=== PATIENT | male | born 1985 | race Caucasian/White ===

== ENCOUNTER 2017-10-31 21:14 | Emergency (ER) | payer OTHER ==
--- NOTE | 2017-10-31 21:18 | PDOC ---
History of Present Illness - History of Present Illness Initial Comments: 10/31/17 21:45 The patient is a 32 year old male, with a significant past medical history of herniated discs (4), who presents to the emergency department with sore throat, cough and right ear pain for 1.5 days. Patient states that 1.5 days ago he began experiencing throat pain and right ear pain. Hes been taking Tylenol for the pain. He took his temperature approximately 9 hours ago and it was 101.5 degrees. He is experiencing a non-productive cough, says his phlegm gets stuck in throat. He admits a sick contact - his co-worker. He denies recent rash or stiff neck. He denies any recent, chills, headache or dizziness. He denies any recent nausea, vomit, diarrhea or constipation. He denies any recent chest pain or shortness of breath. He denies any recent dysuria, frequency, urgency or hematuria. Allergies: NKA Past surgical history: herniated disc surgery, appendectomy (1996). Social History:Former smoker (quit 6 months ago, rarely smoked) <Kenya Eddy - Last Filed: 10/31/17 21:45> <Alfreda Murrieta - Last Filed: 11/01/17 04:52> - General Chief Complaint: Pain, Acute Stated Complaint: SORE THROAT X 2 DAYS Time Seen by Provider: 10/31/17 21:17 Past History <Kenya Eddy - Last Filed: 10/31/17 21:45> - Past Medical History Anemia: No Asthma: No Cancer: No Cardiac Disorders: No CVA: No COPD: No CHF: No Dementia: No Diabetes: No GI Disorders: No Disorders: No HTN: No Hypercholesterolemia: No Liver Disease: No Seizures: No Thyroid Disease: No - Surgical History Abdominal Surgery: No Appendectomy: Yes (1996) Cardiac Surgery: No Cholecystectomy: No Lung Surgery: No Neurologic Surgery: No Orthopedic Surgery: No - Immunization History Td Vaccination: Yes Immunization Up to Date: Yes - Suicide/Smoking/Psychosocial Hx Smoking Status: No Smoking History: Never smoked Number of Cigarettes Smoked Daily: 0 Hx Alcohol Use: Yes (weekends) Drug/Substance Use Hx: No Substance Use Type: None <Alfreda Murrieta - Last Filed: 11/01/17 04:52> - Past Medical History Allergies/Adverse Reactions: Allergies Allergy/AdvReac Type Severity Reaction Status Date / Time No Known Allergies Allergy Verified 10/31/17 21:15 Home Medications: Ambulatory Orders Neomycin/Polymyxn/Hc [Cortisporin Otic Suspenstion -] 4 drop AD Q4HWA #1 bottle 10/31/17 Review of Systems - Review of Systems Comments:: 10/31/17 21:46 GENERAL/CONSTITUTIONAL: +fever. No chills. No weakness. HEAD, EYES, EARS, NOSE AND THROAT: No change in vision. + right ear pain, no discharge. +sore throat. CARDIOVASCULAR: No chest pain or shortness of breath. RESPIRATORY: +non-productive cough, no wheezing, or hemoptysis. GASTROINTESTINAL: No nausea, vomiting, diarrhea or constipation. GENITOURINARY: No dysuria, frequency, or change in urination. MUSCULOSKELETAL: No joint or muscle swelling or pain. No neck or back pain. SKIN: No rash NEUROLOGIC: No headache, vertigo, loss of consciousness, or change in strength/ sensation. ENDOCRINE: No increased thirst. No abnormal weight change. HEMATOLOGIC/LYMPHATIC: No anemia, easy bleeding, or history of blood clots. ALLERGIC/IMMUNOLOGIC: No hives or skin allergy. <Kenya Eddy - Last Filed: 10/31/17 21:45> *Physical Exam - Vital Signs Last Vital Signs Temp Pulse Resp BP Pulse Ox 99.2 F 89 16 147/92 98 10/31/17 21:17 10/31/17 21:17 10/31/17 21:17 10/31/17 21:17 10/31/17 21:17 - Physical Exam Comments: 10/31/17 21:47 ADULT EXAM GENERAL: Awake, alert, and fully oriented, in no acute distress HEAD: No signs of trauma EYES: PERRLA, EOMI, sclera anicteric, conjunctiva clear ENT: Pain w/ mvmt of external portion of right ear. Moderately erythematous and edematous right canal. Tympanic membrane normal without bulging, erythema, or dullness. Left ear normal. Pharynx erythematous without edema or exudates. Hearing grossly normal, nares patent, Moist mucosa NECK: Normal ROM, supple, no lymphadenopathy, JVD, or masses LUNGS: Breath sounds equal, clear to auscultation bilaterally. No wheezes, and no crackles HEART: Regular rate and rhythm, normal S1 and S2, no murmurs, rubs or gallops ABDOMEN: Soft, nontender, normoactive bowel sounds. No guarding, no rebound. No masses EXTREMITIES: Normal range of motion, no edema. No clubbing or cyanosis. No cords, erythema, or tenderness NEUROLOGICAL: Cranial nerves II through XII grossly intact. Normal speech, normal gait SKIN: Warm, Dry, normal turgor, no rashes or lesions noted. <Kenya Eddy - Last Filed: 10/31/17 21:45> ED Treatment Course - ADDITIONAL ORDERS Additional order review: 10/31/17 21:15 Group A Strep Rapid Antigen - Final Throat NEGATIVE FOR THE ANTIGEN OF BETA HEMOLYTIC STREP GROUP A <Kenya Eddy - Last Filed: 10/31/17 21:45> Progress Note - Progress Note Progress Note: Documentation has been prepared under my direction and personally reviewed by me in its entirety. I attest that this documented accurately reflects all work, treatment, procedures and medical decision making performed by me. <Alfreda Murrieta - Last Filed: 11/01/17 04:52> Medical Decision Making - Medical Decision Making As noted above, this otherwise healthy 32-year-old man presents with sore throat and fever for the last few days. No exposure to known cases of strep throat or to school age children. He also has right ear pain . Exam as noted showed erythema of the pharynx without exudates. Also, there is erythema and edema of the right auditory canal. Quick strep is negative Throat culture is pending. Patient advised to use ibuprofen alternating with acetaminophen as needed for pain. He will be called if throat culture is positive for strep. Cortisporin drops will be prescribed for his right acute otitis externa. He should return if he has severe pain or high fever and follow-up with his general doctor within the next several days. He will also be given referral to ENT (Dr. Kang durham) for evaluation/treatment if his right ear pain persists <Alfreda Murrieta - Last Filed: 11/01/17 04:52> *DC/Admit/Observation/Transfer - Attestations Scribe Attestion: 10/31/17 21:49 Documentation prepared by Kenya Eddy, acting as medical lab technician for Alfreda Murrieta MD. <Kenya Eddy - Last Filed: 10/31/17 21:45> <Alfreda Murrieta - Last Filed: 11/01/17 04:52> Diagnosis at time of Disposition: Acute otitis externa of right ear Qualifiers: Otitis externa type: unspecified type Qualified Code(s): H60.501 - Unspecified acute noninfective otitis externa, right ear Acute pharyngitis Qualifiers: Pharyngitis/tonsillitis etiology: unspecified etiology Qualified Code(s): J02.9 - Acute pharyngitis, unspecified - Discharge Dispostion Disposition: HOME Condition at time of disposition: Stable - Prescriptions Prescriptions: Neomycin/Polymyxn/Hc [Cortisporin Otic Suspenstion -] 4 drop AD Q4HWA #1 bottle - Referrals Referrals: Vic Kapadia MD [Staff Physician] - - Patient Instructions Printed Discharge Instructions: DI for Pharyngitis/Tonsillopharyngitis -- Adult , DI for Otitis Externa Additional Instructions: Rest; drink plenty of fluids Tylenol/Motrin as needed for pain or fever Cortisporin eardrops: 4 drops in right ear every 4 hours while awake for the next week Return if you have persistent high fever/worsening throat pain/productive cough/ shortness of breath Follow-up with your general doctor within the next week If you have persistent ear pain, follow-up with Dr. Kang durham (ear/nose/throat doctors)
[2017-10-31 21:22] VITALS: BP 147/92; PULSE 89; TEMP 99.2; BMI 41.8
== END 2017-10-31 22:02 | disposition home or self-care (01) ==
LOC: FER 21:14
DX: H60.501 Unspecified acute noninfective otitis externa, right ear (principal); J02.9 Acute pharyngitis, unspecified
CPT/HCPCS: 87070; 87186; 87430; 99281-25

== ENCOUNTER 2017-12-08 00:46 | Emergency (ER) | payer OTHER ==
[2017-12-08 00:53] VITALS: BP 143/82; PULSE 86; TEMP 98.2; BMI 42.5
--- NOTE | 2017-12-08 01:22 | PDOC ---
History of Present Illness - General Chief Complaint: Injury Stated Complaint: RT WRIST PAIN Time Seen by Provider: 12/08/17 01:16 Past History - Past Medical History Allergies/Adverse Reactions: Allergies Allergy/AdvReac Type Severity Reaction Status Date / Time No Known Allergies Allergy Verified 10/31/17 21:15 Home Medications: Ambulatory Orders NK [No Known Home Medication] 12/08/17 Anemia: No Asthma: No Cancer: No Cardiac Disorders: No CVA: No COPD: No CHF: No DVT: No Dementia: No Diabetes: No GI Disorders: No Disorders: No HTN: No Hypercholesterolemia: No Liver Disease: No Seizures: No Thyroid Disease: No - Surgical History Abdominal Surgery: No Appendectomy: Yes (1996) Cardiac Surgery: No Cholecystectomy: No Lung Surgery: No Neurologic Surgery: No Orthopedic Surgery: No - Immunization History Td Vaccination: Yes Immunization Up to Date: Yes - Suicide/Smoking/Psychosocial Hx Smoking Status: No Smoking History: Former smoker Have you smoked in the past 12 months: Yes Number of Cigarettes Smoked Daily: 0 Information on smoking cessation initiated: Yes 'Breaking Loose' booklet given: 12/08/17 Hx Alcohol Use: Yes (s) Drug/Substance Use Hx: No Substance Use Type: None *Physical Exam - Vital Signs Last Vital Signs Temp Pulse Resp BP Pulse Ox 98.2 F 86 18 143/82 100 12/08/17 00:50 12/08/17 00:50 12/08/17 00:50 12/08/17 00:50 12/08/17 00:50 *DC/Admit/Observation/Transfer Diagnosis at time of Disposition: Right wrist sprain Qualifiers: Encounter type: initial encounter Qualified Code(s): S63.501A - Unspecified sprain of right wrist, initial encounter - Discharge Dispostion Disposition: HOME Condition at time of disposition: Stable - Referrals Referrals: Claire Christianson MD [Primary Care Provider] - Urbano Talamantes MD [Staff Physician] - Call tomorrow - Patient Instructions Printed Discharge Instructions: Wrist Sprain Additional Instructions: Wrist splint during the day until seen by orthopedist Ibuprofen/naproxen/acetaminophen as needed for pain No work until seen by orthopedist Return to ER if you have severe, persistent pain - Post Discharge Activity Forms/Work/School Notes: Back to Work
== END 2017-12-08 02:36 | disposition home or self-care (01) ==
LOC: FER 00:46
DX: S63.501A Unspecified sprain of right wrist, initial encounter (principal); X58.XXXA Exposure to other specified factors, initial encounter; Y93.89 Activity, other specified; Y92.9 Unspecified place or not applicable; Z87.891 Personal history of nicotine dependence
CPT/HCPCS: 73110-TC-RT-FY; 99282-25

== ENCOUNTER 2018-09-01 12:42 | Emergency (ER) | payer SELFPAY ==
[2018-09-01 13:02] VITALS: BP 143/93; PULSE 77; TEMP 98.3; BMI 42.4
[2018-09-01] MEDS ORDERED: IBUPROFEN 600 MG TABLET (FP) PO ONE ×2 (14:01)
--- NOTE | 2018-09-01 14:08 | PDOC ---
History of Present Illness - General Chief Complaint: Pain Stated Complaint: INJURY Time Seen by Provider: 09/01/18 13:26 History Source: Patient Exam Limitations: No Limitations - History of Present Illness Initial Comments: 09/01/18 14:02 33 y/o male presents to the ED with c/o of right hand pain after punching a wall earlier today. Pt states unable to make a fist secondary to swelling and pain Occurred: reports: just prior to arrival Severity: reports: mild Pain Location: reports: upper extremity Method of Injury: Yes: direct blow Associated Symptoms (Fall): denies symptoms Past History - Travel Traveled outside of the country in the last 30 days: No - Past Medical History Allergies/Adverse Reactions: Allergies Allergy/AdvReac Type Severity Reaction Status Date / Time No Known Allergies Allergy Verified 09/01/18 12:56 Home Medications: Ambulatory Orders NK [No Known Home Medication] 12/08/17 Anemia: No Asthma: No Cancer: No Cardiac Disorders: No CVA: No COPD: No CHF: No DVT: No Dementia: No Diabetes: No GI Disorders: No Disorders: No HTN: No Hypercholesterolemia: No Liver Disease: No Seizures: No Thyroid Disease: No - Surgical History Abdominal Surgery: No Appendectomy: Yes (1996) Cardiac Surgery: No Cholecystectomy: No Lung Surgery: No Neurologic Surgery: No Orthopedic Surgery: No - Immunization History Td Vaccination: Yes Immunization Up to Date: Yes - Suicide/Smoking/Psychosocial Hx Smoking Status: No Smoking History: Never smoked Have you smoked in the past 12 months: Yes Number of Cigarettes Smoked Daily: 0 Information on smoking cessation initiated: No 'Breaking Loose' booklet given: 12/08/17 Hx Alcohol Use: No Drug/Substance Use Hx: No Substance Use Type: None Patient Lives Alone: No Lives with/in: spouse/SO Review of Systems - Review of Systems Able to Perform ROS?: Yes Constitutional: No: Symptoms Reported Musculoskeletal: Yes: Joint Pain Integumentary: Yes: Bruising, Erythema Neurological: No: Tingling, Weakness Hematologic/Lymphatic: No: Symptoms Reported *Physical Exam - Vital Signs Last Vital Signs Temp Pulse Resp BP Pulse Ox 98.3 F 77 16 143/93 99 09/01/18 12:58 09/01/18 12:58 09/01/18 12:58 09/01/18 12:58 09/01/18 12:58 - Physical Exam General Appearance: Yes: Nourished, Appropriately Dressed. No: Apparent Distress Comments:: 09/01/18 15:27 2+ rt radial Extremity: positive: Normal Capillary Refill. negative: Normal Inspection ( noted diffuse edema over the dorsal aspect of rt hand to 3-5th MCP joints), Normal Range of Motion Neurologic: positive: Motor Strength 5/5 (ambulatory) Procedures - Splinting Splint Location: Right: Forearm Pre-Proc Neuro Vasc Exam: normal Hand-Made Type: orthoglass Splint Type: Yes: Short Arm Michael Bandage: 4" Sling: No Complications: No - Laceration/Wound Repair Right Leg Amount of Anesthetic (ccs): 5 Number of Deep Layer Sutures: 4 Sterile Dressing Applied: Yes ED Treatment Course - RADIOLOGY Radiology Studies Ordered: Category Date Time Status HAND- RIGHT [RAD] Stat Radiology 09/01/18 13:27 Taken Medical Decision Making - Medical Decision Making 09/01/18 15:08 CC: rt hand injury Exam: edema and tenderness over 4th mcp Plan: motrin and xray 09/01/18 15:28 Xray read by me and was -. Pt was put in a splint and given ortho referral secondary to clinical presentation *DC/Admit/Observation/Transfer Diagnosis at time of Disposition: Contusion of right hand - Discharge Dispostion Disposition: HOME Condition at time of disposition: Good - Referrals Referrals: Feliciano Clements DO [Staff Physician] - - Patient Instructions Printed Discharge Instructions: DI for Contusion Additional Instructions: Please follow up with preferred orthopedist and apply ice to the affected area as much as he can tolerate for the next 72 hours. May take Motrin or Tylenol for discomfort. I will call if radiologist's results are positive. - Post Discharge Activity
== END 2018-09-01 15:37 | disposition home or self-care (01) ==
LOC: JERFT 12:42
PROC: 2W3CX1Z Immobilization of Right Lower Arm using Splint (ICD-10-PCS; principal; 2018-09-01)
DX: S60.221A Contusion of right hand, initial encounter (principal); W22.8XXA Striking against or struck by other objects, initial encounter; Y92.038 Other place in apartment as the place of occurrence of the external cause; Y99.8 Other external cause status
CPT/HCPCS: 73130-TC-RT-FY; 99281-25

== ENCOUNTER 2023-06-29 08:36 | Emergency (ER) | payer OTHER ==
[2023-06-29 08:56] VITALS: BP 122/75; PULSE 65; RESP 20; TEMP 97.5; BMI 40.9
[2023-06-29] MEDS ORDERED: ACETAMINOPHEN 325 MG TABLET (FP) PO ONE (09:15)
[2023-06-29] MEDS ORDERED: IBUPROFEN 600 MG TABLET (FP) PO ONE ×2 (09:15→09:19)
[2023-06-29] MEDS ORDERED: ACETAMINOPHEN 325 MG TABLET (FP) ONE (09:19)
== END 2023-06-29 11:05 | disposition home or self-care (01) ==
LOC: JERFT 08:36
DX: M25.572 Pain in left ankle and joints of left foot (principal); M79.672 Pain in left foot; M25.472 Effusion, left ankle; R22.42 Localized swelling, mass and lump, left lower limb
CPT/HCPCS: 73610-TC-LT-FY; 73630-TC-LT; 99283-25

== ENCOUNTER 2023-07-14 14:14 | Emergency (ER) | payer OTHER ==
[2023-07-14 14:27] VITALS: BMI 41.9
[2023-07-14] MEDS ORDERED: ACETAMINOPHEN 1000 MG/100 ML BAG IVPB ONE (15:08)
[2023-07-14] MEDS ORDERED: ACETAMINOPHEN INJECTION 100 ML IVPB ONE (15:13)
[2023-07-14 15:42] LABS: BASO % 0.4 % (0-2.0); EOS % 0.6 % (0-4.5); HEMATOCRIT 42.3 % (35.4-49); HEMOGLOBIN 14.4 GM/dL (11.7-16.9); LYMPH % 17.3 % (8-40); MCH 28.4 pg (25.7-33.7); MCHC 34.1 g/dl (32.0-35.9); MEAN CELL VOLUME 83.3 fl (80-96); MEAN PLT VOLUME 7.8 fl (7.5-11.1); MONO % 5.8 % (3.8-10.2); NEUT % 75.9 % (42.8-82.8); PLATELET COUNT 370 10^3/uL (134-434); RBC 5.07 M/mm3 (4.00-5.60); RDW 13.6 % (11.9-15.9); WHITE BLOOD COUNT 12.1 K/mm3 (4.0-10.0)
[2023-07-14 15:49] LABS: INR 1.17 (0.83-1.09); PROTHROMBIN TIME (PATIENT) 13.6 SEC (9.7-13.0)
[2023-07-14 15:52] LABS: ACTIVATED PTT 31.9 SECONDS (25.2-36.5)
[2023-07-14 16:03] LABS: POTASSIUM 4.2 mmol/L (3.5-5.1)
[2023-07-14 16:05] LABS: ALBUMIN 4.1 g/dl (3.4-5.0); BLOOD UREA NITROGEN 14.4 mg/dL (7-18); CALCIUM 9.4 mg/dL (8.5-10.1)
[2023-07-14 16:07] LABS: MAGNESIUM 1.7 mg/dL (1.8-2.4)
[2023-07-14 16:09] LABS: CREATININE 0.9 mg/dL (0.55-1.3)
[2023-07-14 16:11] LABS: BILIRUBIN,TOTAL 0.6 mg/dL (0.2-1); TOT PROT 8.8 g/dl (6.4-8.2)
[2023-07-14 18:41] VITALS: BP 122/77; PULSE 68; RESP 22; TEMP 98.3
== END 2023-07-14 18:41 | disposition home or self-care (01) ==
LOC: JER 14:14
PROC: 3E033NZ Introduction of Analgesics, Hypnotics, Sedatives into Peripheral Vein, Percutaneous Approach (ICD-10-PCS; principal; 2023-07-14)
DX: R07.89 Other chest pain (principal); R00.0 Tachycardia, unspecified
CPT/HCPCS: 36415; 71046-TC-FY; 80053; 83735; 84439; 84443; 84484; 85025; 85379; 85610; 85730; 93005; 93010; 96374; 99285-25